=== PATIENT | female | born 1980 | race Hispanic/Latino ===

== ENCOUNTER 2023-09-12 06:50 | Day surgery (SDC) | payer BC ==
[2023-09-08 12:55] VITALS: BP 104/78; PULSE 101; RESP 18
[2023-09-08 12:59] LABS: BASOPHILS # (AUTO) 0.05 K/uL (0.00-0.20); BASOPHILS % (AUTO) 0.8 % (0.0-5.0); EOSINOPHILS # (AUTO) 0.05 K/uL (0.00-0.70); EOSINOPHILS % (AUTO) 0.8 % (0.0-8.0); HEMATOCRIT 46.6 % (36-48); IMMATURE GRANULOCYTE ABSOLUTE 0.02 K/uL (0-1); LYMPHOCYTES # (AUTO) 1.9 K/uL (1.0-4.8); LYMPHOCYTES % (AUTO) 29.5 % (21.0-51.0); MEAN CORPUSCULAR HEMOGLOBIN 29.7 pg (27.0-33.0); MEAN CORPUSCULAR HGB CONC 33.7 g/dL (32.0-36.0); MEAN CORPUSCULAR VOLUME 88.1 fL (79-99); MONOCYTES # (AUTO) 1.1 K/uL (0.1-1.0); MONOCYTES % (AUTO) 17.2 % (3.0-13.0); NEUTROPHILS # (AUTO) 3.4 K/uL (1.8-7.7); NEUTROPHILS % (AUTO) 51.4 % (40.0-77.0); PLATELET COUNT (AUTO) 312 K/uL (130-400); RED BLOOD CELL COUNT(AUTO) 5.29 MIL/uL (4.00-5.50); RED CELL DISTRIBUTION WIDTH 13.2 % (11.0-15.5); WHITE BLOOD COUNT (AUTO) 6.6 K/uL (4.8-10.8)
[2023-09-12] VITALS (16 sets, daily range): BP systolic 97–126; BP diastolic 63–82; PULSE 63–71; RESP 10–18
[~2023-09-12] VITALS: Ht 172.7 cm; Wt 95.4 kg
[~2023-09-12 06:50] MED LIST: ARIP5TAB30 PO; BACL5TAB PO; BUPR-561 PO; ESCI20TA38 PO; TOPI-97 PO
[2023-09-12 07:23] LABS: POTASSIUM 3.8 mmol/L (3.5-5.1)
[2023-09-12] MEDS ORDERED: INDOCYANINE GREEN 25 MG VIAL IJ ONE (07:24)
[2023-09-12] MEDS: LACTATED RINGERS 1000ML 1,000 ML IV ONE (07:31)
[2023-09-12] MEDS: CEFAZOLIN SODIUM 2 GM VIAL ONE (07:31)
[2023-09-12] MEDS ORDERED: PROPOFOL 10 MG/ML 20ML VIAL IV ONE ×2 (07:32→08:41)
[2023-09-12] MEDS ORDERED: LIDOCAINE PF 100MG/5ML (2%) SYRINGE 5ML ONE (07:32)
[2023-09-12] MEDS ORDERED: ROCURONIUM BROMIDE 10MG/1ML 5ML VL ONE ×2 (07:32→09:10)
[2023-09-12] MEDS ORDERED: FENTANYL CITRATE PF 50 MCG/1 ML 2ML VIAL ONE ×2 (07:33→08:57)
[2023-09-12] MEDS ORDERED: BUPIVACAINE/PF 0.25% 10ML VIAL IJ ONE (07:35)
[2023-09-12] MEDS ORDERED: BUPIVACAINE/PF 0.25% 30ML VIAL IJ ONE (07:35)
[2023-09-12] MEDS: CEFAZOLIN SODIUM 2 GM VIAL IVPB ONE (08:37)
[2023-09-12] MEDS ORDERED: NEOSTIGMINE METHYLSULFATE 1MG/ML IV ONE (09:42)
[2023-09-12] MEDS ORDERED: GLYCOPYRROLATE 0.2 MG/ML 5 ML VIAL ONE (09:42)
[2023-09-12] MEDS: ONDANSETRON 4MG INJ ONE (10:37)
[2023-09-12] MEDS: MEPERIDINE-PF 25 MG/ML SYG ONE ×2 (10:37→11:04)
[2023-09-12] MEDS: ACETAMINOPHEN 1,000 MG/100 ML VIAL IV ONE (10:38)
[2023-09-12] MEDS: KETOROLAC 30MG VIAL (30MG/ML) ONE (11:03)
== END 2023-09-12 11:50 | disposition home or self-care (01) ==
LOC: DAH 06:50
PROVIDERS: ATTEND Surgery
DX: K80.10 Calculus of gallbladder with chronic cholecystitis without obstruction (principal); R11.0 Nausea; R10.10 Upper abdominal pain, unspecified; E55.9 Vitamin D deficiency, unspecified; Z85.3 Personal history of malignant neoplasm of breast; Z79.899 Other long term (current) drug therapy
CPT/HCPCS: 47563; S2900; 36415; 80048; 84703; 85025; 88304; J1885; J2001; J2175; J2405; J2704; J2710; J3010; J3490; J7030; J7120; A4215; A4221; A4222; A4223; A4452; A4600; A4649; A4663; A4930; A6260; C1769; J0665; J0690